=== PATIENT | male | born 1980 | race Caucasian/White ===

== ENCOUNTER 2020-03-28 06:51 | Inpatient (IN) ==
[2020-03-16 12:14] LABS: Appearance,Urine CLEAR (Clear); Bilirubin,Urine Negative (Negative); Color,Urine YELLOW; Culture Indicated,Urine No; Glucose,Urine (UA) Negative (Negative); Ketones,Urine Negative (Negative); Leukocyte Esterase,Urine Negative /ug (Negative); Nitrate,Urine Negative (Negative); Protein,Urine Negative (Negative); Specific Gravity,Urine 1.015 (1.000-1.035); Urine Blood Negative (Negative); Urobilinogen,Urine Negative
[2020-03-16 13:15] LABS: Basophils # (Auto) 0.05 K/mcL (0.00-0.20); Basophils % (Auto) 0.5 % (0.0-2.0); Eosinophils # (Auto) 0.19 K/mcL (0.00-0.70); Hematocrit 50.3 % (41.0-55.0); Hemoglobin 16.8 g/dL (13.5-16.5); Lymphocytes # (Auto) 3.23 K/mcL (1.50-4.80); Lymphocytes % (Auto) 33.2 % (15.0-49.0); Mean Cell Volume 95.1 fL (80.0-100.0); Mean Corpuscular HGB Conc 33.4 g/dL (31.0-36.0); Mean Platelet Volume 10.2 fL (7.4-10.4); Monocytes # (Auto) 0.71 K/mcL (0.10-0.90); Monocytes % (Auto) 7.3 % (1.0-12.0); Platelet Count 294 K/mcL (140-440); RBC 5.29 M/mcL (4.50-5.90); Red Cell Distribution Width 13.2 % (11.5-14.5); WBC 9.7 K/mcL (4.5-11.0)
[2020-03-16 13:33] LABS: Blood Urea Nitrogen 14 mg/dL (6-20); Calcium 9.4 mg/dL (8.6-10.4); Carbon Dioxide 26 mmol/L (22-30); Chloride 102 mmol/L (96-108); Glomerular Filtration Rate 107; Glucose 94 mg/dL (70-105)
[~2020-03-28 06:51] MED LIST: CELECOXIB 200 MG CAPSULE PO SCH; PREGABALIN 75 MG CAPSULE PO SCH; ceFAZolin 3 GM in DEXTROSE 5% IN WATER 50 ML IV SCH; oxyCODONE 10 MG TAB.ER.12H PO SCH
[2020-03-28] MEDS ORDERED: IPRATROPIUM/ALBUTEROL 3 ML AMPUL.NEB NEB PRN ×2 (07:00→10:48)
[2020-03-28] MEDS ORDERED: SCOPOLAMINE 1 PATCH PATCH TOPICAL PRN (07:00)
[2020-03-28] MEDS ORDERED: GENTAMICIN SULFATE 800 MG/20 ML VIAL IR ONE (08:29)
[2020-03-28] MEDS ORDERED: fentaNYL 250 MCG/5 ML VIAL IV ONE (09:50)
[2020-03-28] MEDS ORDERED: MIDAZOLAM 5 MG/5 ML VIAL ONE (09:50)
[2020-03-28] MEDS ORDERED: LIDOCAINE HCL/PF 100 MG/5 ML SYRINGE IV ONE (09:50)
[2020-03-28] MEDS ORDERED: TRANEXAMIC ACID 1,000 MG/10 ML VIAL IV ONE ×2 (09:50→12:11)
[2020-03-28] MEDS ORDERED: PROPOFOL 200 MG/20 ML VIAL IV ONE (09:50)
[2020-03-28] MEDS ORDERED: ROCURONIUM 10 MG/ML ML IV ONE (09:50)
[2020-03-28] MEDS ORDERED: ePHEDrine 50 MG/ML AMPUL IV ONE (09:50)
[2020-03-28] MEDS ORDERED: PHENYLEPHRINE 10 MG/ML VIAL ONE (09:50)
[2020-03-28] MEDS ORDERED: SUCCINYLCHOLINE 20 MG/ML ML IV ONE (09:50)
[2020-03-28] MEDS ORDERED: DEXAMETHASONE 10 MG/ML VIAL ONE (09:50)
[2020-03-28] MEDS ORDERED: ONDANSETRON 4 MG/2 ML VIAL ONE (09:50)
[2020-03-28] MEDS ORDERED: FLUMAZENIL 0.1 MG/ML ML IV PRN (10:48)
[2020-03-28] MEDS ORDERED: NALOXONE HCL 0.4 MG/ML VIAL IV PRN (10:48)
[2020-03-28] MEDS ORDERED: PROMETHAZINE 25 MG/ML VIAL IV PRN (10:48)
[2020-03-28] MEDS ORDERED: morphine 2 MG/ML VIAL IV PRN (10:48)
[2020-03-28] MEDS ORDERED: ONDANSETRON 4 MG/2 ML VIAL IV PRN ×2 (10:48→12:11)
[2020-03-28] MEDS ORDERED: METOPROLOL TARTRATE 5 MG/5 ML VIAL IV PRN (10:48)
[2020-03-28] MEDS ORDERED: ePHEDrine 50 MG/ML AMPUL IV PRN (10:48)
[2020-03-28] MEDS ORDERED: ACETAMINOPHEN 1,000 MG/100 ML BAG IV ONE (10:48)
[2020-03-28] MEDS ORDERED: diphenhydrAMINE 50 MG/ML VIAL IV PRN (10:48)
[2020-03-28] MEDS ORDERED: METHOCARBAMOL 1,000 MG/10 ML VIAL IV PRN (10:48)
[2020-03-28] MEDS ORDERED: MEPERIDINE 25 MG/ML SYRINGE IV PRN (10:48)
[2020-03-28] MEDS ORDERED: ATROPINE SULFATE 0.4 MG/ML VIAL IV PRN (10:48)
[2020-03-28] MEDS ORDERED: LACTATED RINGERS 1,000 ML IV SCH (11:00)
[2020-03-28] MEDS ORDERED: LORazepam 2 MG/ML VIAL IV ONE (11:26)
--- NOTE | 2020-03-28 12:09 | General Surgery Procedure Note ---
Date of procedure: Note initiated : 03/28/20 at 12:08 pm Service Date, if different from initiated Date: [] Pre-op diagnosis: right hip osteoarthritis Post-op diagnosis: same Procedure: right total hip arthroplasty Anesthesia: SHIN Surgeon: Basil Garcia Pbx Manager: Manuel Loco Estimated blood loss: 300 Pathology: none sent Condition: stable Disposition: PACU
[2020-03-28] MEDS ORDERED: ONDANSETRON 4 MG ODT TABLET SL PRN (12:11)
[2020-03-28] MEDS ORDERED: FLEETS ADULT ENEMA PR PRN (12:11)
[2020-03-28] MEDS ORDERED: BISACODYL 10 MG SUPP.RECT PR PRN (12:11)
[2020-03-28] MEDS ORDERED: MAGNESIUM HYDROXIDE 30 ML ORAL.SUSP PO PRN (12:11)
[2020-03-28] MEDS ORDERED: POLYETHYLENE GLYCOL 3350 17 GM PACKET PO PRN (12:11)
[2020-03-28] MEDS ORDERED: KETOROLAC 30 MG/ML VIAL IV PRN (12:11)
[2020-03-28] MEDS ORDERED: METHOCARBAMOL 750 MG TABLET PO PRN (12:11)
--- NOTE | 2020-03-28 12:11 | Discharge Plan ---
Discharge Instructions - DARVIN Patient Instructions Total Hip Protocol: Follow activity instructions as provided by Physical Therapy. Dressing Care: May shower in 2 days Discharge Plan Patient/Caregiver Discharge Instructions Activity: ambulate only with your walker and as per physical therapy Diet: Regular Diet Prescriptions: No Action lisinopril 10 MG tablet 10 mg PO DAILY RF: 0 hydrochlorothiazide 12.5 MG tablet 25 mg PO DAILY RF: 0 dextroamphetamine-amphetamine [Adderall] 20 mg tablet 20 mg PO TID RF: 0 trazodone 100 mg tablet 100 mg PO QHS RF: 0 zolpidem 10 mg tablet 10 mg PO QHS RF: 0 eszopiclone [Lunesta] 3 mg tablet 3 mg PO QHS RF: 0 ondansetron HCl [Zofran] 4 mg tablet 4 mg PO Q6H PRN (Reason: nausea and vomiting) Qty: 10 RF: 0 methocarbamol [Robaxin-750] 750 mg tablet 750 mg PO Q8H Qty: 10 RF: 0 multivitamin Capsule 1 cap PO QDAY RF: 0 Follow Up Plan Follow up with: Basil Garcia MD [Physician] - Patient Disposition: Home, Self-Care Rehab Potential: Good I certify that the patient requires SNF services: No Overall status at discharge: patient is progressing back to baseline Discharge Orders: Discharge Order (Routine); Ordered 03/28/20 Ordered By: Basil Garcia Discharge Comment: chief complaint: right hip osteoarthritis s/p darvin
[2020-03-28] MEDS ORDERED: ONDANSETRON HCL 4 MG PO PRN (12:14)
--- NOTE | 2020-03-28 12:52 | Operative Note ---
DATE OF OPERATION: 03/28/2020 PREOPERATIVE DIAGNOSIS: Degenerative joint disease, right hip. POSTOPERATIVE DIAGNOSIS: Degenerative joint disease, right hip. PROCEDURE: Right total hip arthroplasty. SURGEON: Nemesio Garcia M.D. QUOTATION CHECKER SURGEON: Chan Loco PA-C. The PA's assistance was required for the safe and efficient completion of the entire case. This providers expertise and technical skill were required throughout the case. The PA assisted with preoperative coordination, intraoperative retraction, wound closure, dressing and splint application, as well as postoperative documentation and care coordination. ANESTHESIA: Spinal with LMA assist. ESTIMATED BLOOD LOSS: 250 mL. COMPLICATIONS: None noted. SPECIMENS REMOVED: None. DRAINS: None. IMPLANTS: DePuy Rodney Hole Eliminator PS; DePuy [place] Gription acetabular shell, 56 mm diameter; DePuy femoral stem Actis DuoFix hip prosthesis cementless, size 7, standard collar; DePuy [place] Altrx polyethylene acetabular liner lipped, 36 x 56 mm; DePuy Biolox delta ceramic femoral head +12, 36 mm diameter. INDICATIONS: The patient has had a longstanding history of worsening pain in the hip that has failed conservative treatment. Radiographs have confirmed advanced degenerative joint disease. After a long discussion about treatment options, the patient elected to proceed with a hip arthroplasty. The risks and benefits were discussed with the patient in detail including, but not limited to, the risks of anesthesia, problems with the heart or lungs related to anesthesia, infection, compromise or injury to the nerves and blood vessels, deep venous thrombosis, pulmonary embolism, pneumonia, continued pain after surgery, worsening pain or symptoms after surgery, swelling, loss of motion, instability, leg length discrepancy, and need for repeat surgery. DESCRIPTION OF PROCEDURE: The patient was seen in pre-anesthesia waiting room where all questions were answered and the correct side and site were identified and marked. The patient was then brought to the operating room and administered the anesthetic and given pre-operative antibiotics. A time-out was then called. The patient was placed in the lateral decubitus position with all prominences well-padded using the [place] frame and the extremity was prepped and draped in the usual sterile fashion. Anesthesia gave the patient 1 gm of tranexamic acid via an intravenous route. A standard posterior approach was made. We dissected through the skin and subcutaneous tissue to the deep fascia. The deep fascia was split in line with the incision and a Charnley retractor was placed. We exposed, tagged, and incised the short external rotators and piriformis tendon and retracted them posteriorly to help protect the sciatic nerve which was palpated throughout the case. We then performed a T-capsulotomy and tagged the capsule edges. Prior to dislocating the hip, we set a length and offset gauge from a Steinmann pin in the iliac wing to a nicole on the greater trochanter. The hip was then dislocated and a femoral neck osteotomy was performed to the pre-surgical templated level off the lesser trochanter. The head was removed and sized. We next turned our attention to the acetabulum. Retractors were placed for optimal visualization. A complete labral excision was performed. The capsule was preserved for later closure. We began reaming using anatomic landmarks with the DePuy [place] acetabular system. We medialized the cup and reamed up to provide good fill and coverage of the trial. When the trial was stable and appropriately positioned with approximately 20 degrees of anteversion and 45 degrees of abduction, we impacted the DePuy [place] cup and placed a cancellous screw in the posterior-superior quadrant. Osteophytes were removed from around the shell. We placed the trial liner and turned our attention to the femur. We placed retractors for visualization, internally rotated the femur, and established intramedullary access. We broached using the DePuy Tri-Lock stem to a stable platform medial, lateral, and rotationally with the appropriate version. We then performed a calcar reaming off the broach. Trials were then placed and optimized for leg length and stability. We used the leg length and offset guide to confirm our trials. Best stability, length, and offset characteristics were obtained with these sizes. We removed all trials and impacted the polyethylene acetabular liner in a standard fashion after a thorough irrigation. We then impacted the femoral stem to its broached location and placed the head. Final reduction was performed. Again, good stability, leg length, and offset characteristics were noted. We irrigated with three liters of antibiotic saline. We closed the capsule with #2 FiberWire. We closed the fascia with a combination of looped #0 Maxon and #0 Vicryl. We closed the subcutaneous tissue and skin in layers out to koko in the skin. A sterile pressure dressing and abduction wedge was applied. All needle and sponge counts were correct. The patient was transferred to the recovery room in stable condition. George Job ID: [id number] Doc ID: [id number] Nemesio Garcia MD
[2020-03-28] MEDS: HYDROmorphone 0.5 MG/0.5 ML SYRINGE IV PRN ×4 (12:58→13:45)
[2020-03-28] MEDS: BENZOCAINE/MENTHOL 1 LOZENGE PO PRN ×2 (13:09→18:49)
--- NOTE | 2020-03-28 13:52 | XRay Report ---
CLINICAL INFORMATION: Post-op Total Hip COMPARISON: Preoperative films 11/20/2018 FINDINGS: Right total hip prostheses in near anatomic alignment. No osseous abnormalities. Both SI and left hip joints are normal. Soft tissue swelling the surgical site as expected IMPRESSION: Negative Interpreted and Authenticated by: Basil Yates 03/28/20
[2020-03-28] MEDS: 0.9 % SODIUM CHLORIDE 10 ML SYRINGE IV SCH ×2 (14:17→21:09)
[2020-03-28] MEDS: oxyCODONE/APAP 5/325MG TABLET PO PRN ×3 (14:44→23:39)
[2020-03-28] MEDS: METHOCARBAMOL 750 MG TABLET PO SCH ×2 (14:44→21:08)
[2020-03-28] MEDS: LACTATED RINGERS 1,000 ML IV SCH ×3 (14:45→21:09)
[2020-03-28] MEDS: DEXTROAMPHETAMINE AMPHETAMINE 20 MG PO SCH ×2 (14:45→21:09)
[2020-03-28] MEDS: morphine 4 MG/ML VIAL IV PRN ×2 (15:58→21:07)
[2020-03-28] MEDS: ceFAZolin 1 GM VIAL IV SCH (17:02)
[2020-03-28] MEDS ORDERED: ESZOPICLONE 3 MG PO SCH (21:00)
[2020-03-28] MEDS: ASPIRIN 81 MG TAB.CHEW PO SCH (21:08)
[2020-03-28] MEDS: traZODone HCL 100 MG TABLET PO SCH (21:08)
[2020-03-28] MEDS: ZOLPIDEM 5 MG TABLET PO SCH (21:08)
[2020-03-28] MEDS: SENNOSIDES 1 TABLET PO SCH (21:08)
[2020-03-28] MEDS: DOCUSATE SODIUM 100 MG CAPSULE PO SCH (21:09)
[2020-03-29] MEDS: ceFAZolin 1 GM VIAL IV SCH ×2 (01:56→22:41)
[2020-03-29] MEDS: morphine 4 MG/ML VIAL IV PRN ×5 (02:05→23:11)
[2020-03-29] MEDS: 0.9 % SODIUM CHLORIDE 10 ML SYRINGE IV SCH ×4 (02:06→22:52)
[2020-03-29] MEDS: oxyCODONE/APAP 5/325MG TABLET PO PRN ×3 (03:33→12:21)
[2020-03-29] MEDS: METHOCARBAMOL 750 MG TABLET PO SCH ×2 (03:34→13:43)
[2020-03-29 06:57] LABS: Hematocrit 41.4 % (41.0-55.0); Hemoglobin 13.8 g/dL (13.5-16.5)
[2020-03-29 07:38] LABS: Prothrombin Time 13.7 sec (11.9-14.5)
--- NOTE | 2020-03-29 08:05 | Orthopedic Progress Note ---
SUBJECTIVE Subjective Patient information: Note initiated : 03/29/20 at 8:02 am Service Date, if different from initiated Date: [] Patient: Mustapha Multani 39 y/o M admitted on for Right Total Hip Arthroplasty Posterior. Chief Complaint: [feels short and feels like hip is clunking / dislocating] Constitutional Vitals: Vital Signs Temp Pulse Resp BP Pulse Ox 97.9 F 64 17 112/62 95 03/29/20 03:22 03/29/20 03:22 03/29/20 03:22 03/29/20 03:22 03/29/20 03:22 Period Temp Pulse Resp BP Sys/Garcia Pulse Ox Last 24 Hr 97.7 F-98.2 F 64-110 14-26 96-156/47-81 17-98 Intake and Output 03/28/20 03/29/20 03/29/20 21:59 05:59 13:59 Intake Total 1125 1600 50 Output Total 700 2950 Balance 425 -1350 50 Intake & Output: Intake & Output 03/28/20 03/29/20 03/29/20 21:59 05:59 13:59 Intake Total 1125 1600 50 Output Total 700 2950 Balance 425 -1350 50 Intake: IV 685 50 Lactated Ringers 1,000 ml @ 125 685 mls/hr IV .Q8H [facility] Rx#: [id number] Ancef 3 gm In Dextrose 5% in 50 Water 50 ml @ 100 mls/hr IV PREOP [facility] Rx#:[id number] Oral 440 1600 Output: Urine Catheter Amount 700 Void Amount 2950 Other: Meal Dinner Percent of Meal Consumed 100% Feeding Ability Independent Urine Appearance Clear Urine Color Bright Yellow Bright Yellow Urine Odor Normal Expanded Upper Extremity Exam General: Present amputation Expanded Lower Extremity Exam Hip exam: Present dislocation, full ROM, shortening, swelling and tenderness OBJ DATA Labs CBC & Chem 7: 03/29/20 05:44 03/16/20 09:51 Meds: Medications Aspirin (Aspirin) 81 mg PO BID [facility] Last Admin: 03/28/20 21:08 Dose: 81 mg Documented by: Bisacodyl (Dulcolax) 10 mg HI Q2-3DAYS PRN PRN Reason: Constipation Docusate Sodium (Colace) 100 mg PO BID [facility] Last Admin: 03/28/20 21:09 Dose: 100 mg Documented by: Hydrochlorothiazide (Oretic) 25 mg PO DAILY [facility] Ketorolac Tromethamine (Toradol) 30 mg IV Q6HP PRN; Protocol PRN Reason: Per Pain Protocol Stop: 03/30/20 12:12 Last Admin: 03/28/20 13:02 Dose: 30 mg Documented by: Lisinopril (Zestril) 10 mg PO DAILY [facility] Magnesium Hydroxide (Milk Of Magnesia) 30 ml PO BIDP PRN PRN Reason: Constipation Methocarbamol (Robaxin) 750 mg PO Q6HP PRN PRN Reason: Muscle Spasm Methocarbamol (Robaxin) 750 mg PO Q8H [facility] Last Admin: 03/29/20 03:34 Dose: 750 mg Documented by: Morphine Sulfate (Morphine) 2 - 6 mg IV Q1HP PRN; Protocol PRN Reason: Per Pain Protocol Last Admin: 03/29/20 04:57 Dose: 4 mg Documented by: Ondansetron HCl (Zofran) 4 mg IV Q4HP PRN; Protocol PRN Reason: Nausea And Vomiting Ondansetron HCl (Zofran Odt) 4 mg SL Q4HP PRN; Protocol PRN Reason: Nausea And Vomiting Oxycodone/Acetaminophen (Percocet 5-325 Mg) 1 - 2 tab PO Q4HP PRN; Protocol PRN Reason: Per Pain Protocol Last Admin: 03/29/20 07:38 Dose: 2 tab Documented by: Dextroamphetamine- Amphetamine [ Adderall] 20 Mg Tab 1 dose PO TID [facility] Last Admin: 03/28/20 21:09 Dose: Not Given Documented by: Polyethylene Glycol (Miralax) 17 gm PO DAILYP PRN PRN Reason: Constipation Senna (Senokot) 2 tab PO HS [facility] Last Admin: 03/28/20 21:08 Dose: 2 tab Documented by: Sodium Biphosphate/Sodium Phosphate (Fleets Adult) 1 dose HI Q3-4DAYS PRN PRN Reason: Constipation Sodium Chloride (Saline Flush) 10 ml IV Q8 [facility] Last Admin: 03/29/20 04:57 Dose: 10 ml Documented by: Throat Lozenges (Cepacol) 1 lozenge PO PRN PRN PRN Reason: Sore Throat Last Admin: 03/28/20 18:49 Dose: 1 lozenge Documented by: Trazodone HCl (Desyrel) 100 mg PO QHS [facility] Last Admin: 03/28/20 21:08 Dose: 100 mg Documented by: Zolpidem Tartrate (Ambien) 10 mg PO QHS [facility] Last Admin: 03/28/20 21:08 Dose: 10 mg Documented by: A/P Narrative A/P Narrative: pod 1 s/p darvin patient is feeling instability and clunking in hip. sort on xray plan to take back to surgery today for change in version of cup and lengthening of hip. risks and benefits discussed Time Spent With Patient Time: Total time spent is greater than 50% in coordination of care (as documented) at patient's floor/unit and/or counseling patient:
[2020-03-29] MEDS ORDERED: LISINOPRIL 10 MG TABLET PO SCH (09:00)
[2020-03-29] MEDS: LORazepam 2 MG/ML VIAL IV PRN ×3 (10:06→22:59)
[2020-03-29] MEDS: LACTATED RINGERS 1,000 ML IV SCH ×2 (10:07→22:52)
[2020-03-29] MEDS: DOCUSATE SODIUM 100 MG CAPSULE PO SCH (10:52)
[2020-03-29] MEDS: HYDROCHLOROTHIAZIDE 25 MG TABLET PO SCH (10:52)
[2020-03-29] MEDS: ASPIRIN 81 MG TAB.CHEW PO SCH (10:52)
[2020-03-29] MEDS: DEXTROAMPHETAMINE AMPHETAMINE 20 MG PO SCH ×3 (10:52→22:25)
[2020-03-29] MEDS ORDERED: ONDANSETRON 4 MG/2 ML VIAL ONE (19:04)
[2020-03-29] MEDS ORDERED: PHENYLEPHRINE 10 MG/ML VIAL ONE (19:04)
[2020-03-29] MEDS ORDERED: DEXAMETHASONE 10 MG/ML VIAL ONE (19:04)
[2020-03-29] MEDS ORDERED: TRANEXAMIC ACID 1,000 MG/10 ML VIAL IV ONE ×2 (19:04→21:17)
[2020-03-29] MEDS ORDERED: LIDOCAINE HCL/PF 100 MG/5 ML SYRINGE IV ONE (19:04)
[2020-03-29] MEDS ORDERED: fentaNYL 250 MCG/5 ML VIAL IV ONE (19:04)
[2020-03-29] MEDS ORDERED: MIDAZOLAM 5 MG/5 ML VIAL ONE (19:04)
[2020-03-29] MEDS ORDERED: PROPOFOL 200 MG/20 ML VIAL IV ONE (19:04)
[2020-03-29] MEDS ORDERED: GENTAMICIN SULFATE 800 MG/20 ML VIAL IR ONE (19:41)
[2020-03-29] MEDS ORDERED: FLUMAZENIL 0.1 MG/ML ML IV PRN (21:01)
[2020-03-29] MEDS ORDERED: IPRATROPIUM/ALBUTEROL 3 ML AMPUL.NEB NEB PRN (21:01)
[2020-03-29] MEDS ORDERED: ACETAMINOPHEN 1,000 MG/100 ML BAG IV ONE (21:01)
[2020-03-29] MEDS ORDERED: MEPERIDINE 25 MG/ML SYRINGE IV PRN (21:01)
[2020-03-29] MEDS ORDERED: PROMETHAZINE 25 MG/ML VIAL IV PRN (21:01)
[2020-03-29] MEDS ORDERED: LACTATED RINGERS 250 ML IV PRN (21:01)
[2020-03-29] MEDS ORDERED: diphenhydrAMINE 50 MG/ML VIAL IV PRN (21:01)
[2020-03-29] MEDS ORDERED: NALOXONE HCL 0.4 MG/ML VIAL IV PRN (21:01)
[2020-03-29] MEDS ORDERED: fentaNYL 100 MCG/2 ML VIAL IV PRN (21:01)
[2020-03-29] MEDS ORDERED: ONDANSETRON 4 MG/2 ML VIAL IV PRN ×2 (21:01→21:17)
--- NOTE | 2020-03-29 21:14 | General Surgery Procedure Note ---
Date of procedure: Note initiated : 03/29/20 at 9:12 pm Service Date, if different from initiated Date: [] Pre-op diagnosis: right hip instability s/p darvin Post-op diagnosis: same Procedure: right hip revision femoral component total hip arthroplasty Findings: acetabulum increased anteversion and shortening of right hip Anesthesia: spinal Surgeon: Basil Garcia Wool Mixer: Manuel Loco Estimated blood loss: 200 Pathology: none sent Condition: stable Disposition: PACU
[2020-03-29] MEDS ORDERED: LACTATED RINGERS 1,000 ML IV SCH (21:15)
[2020-03-29] MEDS ORDERED: FLEETS ADULT ENEMA PR PRN (21:17)
[2020-03-29] MEDS ORDERED: KETOROLAC 30 MG/ML VIAL IV PRN (21:17)
[2020-03-29] MEDS ORDERED: MAGNESIUM HYDROXIDE 30 ML ORAL.SUSP PO PRN (21:17)
[2020-03-29] MEDS ORDERED: BISACODYL 10 MG SUPP.RECT PR PRN (21:17)
[2020-03-29] MEDS ORDERED: METHOCARBAMOL 750 MG TABLET PO PRN (21:17)
[2020-03-29] MEDS ORDERED: POLYETHYLENE GLYCOL 3350 17 GM PACKET PO PRN (21:17)
[2020-03-29] MEDS ORDERED: ONDANSETRON 4 MG ODT TABLET SL PRN (21:17)
[2020-03-29] MEDS ORDERED: BENZOCAINE/MENTHOL 1 LOZENGE PO PRN (21:17)
[2020-03-29] MEDS: ZOLPIDEM 5 MG TABLET PO SCH (23:36)
[2020-03-29] MEDS: traZODone HCL 100 MG TABLET PO SCH (23:36)
[2020-03-30] MEDS: LACTATED RINGERS 1,000 ML IV SCH ×2 (00:02→06:10)
[2020-03-30] MEDS: ASPIRIN 81 MG TAB.CHEW PO SCH (00:04)
[2020-03-30] MEDS: DOCUSATE SODIUM 100 MG CAPSULE PO SCH (00:05)
[2020-03-30] MEDS: SENNOSIDES 1 TABLET PO SCH (00:05)
[2020-03-30] MEDS: METHOCARBAMOL 750 MG TABLET PO SCH (00:05)
[2020-03-30] MEDS: oxyCODONE/APAP 5/325MG TABLET PO PRN ×3 (00:08→08:21)
[2020-03-30] MEDS: morphine 4 MG/ML VIAL IV PRN ×2 (01:35→06:29)
--- NOTE | 2020-03-30 02:19 | XRay Report ---
CLINICAL INFORMATION: hip revision COMPARISON: None. FINDINGS: Intraoperative film shows femoral stem template and acetabular prostheses anatomically aligned. Soft tissue swelling as expected. IMPRESSION: Intraoperative films as described Interpreted and Authenticated by: Basil Yates 03/30/20
--- NOTE | 2020-03-30 02:20 | XRay Report ---
CLINICAL INFORMATION: Post-op Total Hip COMPARISON: None. FINDINGS: Right total hip prostheses is anatomically aligned. No osseous abnormalities. Both SI and left hip joints are normal in width and alignment without arthritic change. IMPRESSION: Right hip prostheses in anatomic alignment Interpreted and Authenticated by: Basil Yates 03/30/20
[2020-03-30] MEDS: 0.9 % SODIUM CHLORIDE 10 ML SYRINGE IV SCH (04:22)
[2020-03-30] MEDS: ceFAZolin 1 GM VIAL IV SCH (06:30)
[2020-03-30 06:57] LABS: Hematocrit 38.5 % (41.0-55.0); Hemoglobin 12.5 g/dL (13.5-16.5)
--- NOTE | 2020-03-30 06:58 | Orthopedic Progress Note ---
SUBJECTIVE Subjective Patient information: Note initiated : 03/30/20 at 6:56 am Service Date, if different from initiated Date: [] Patient: Mustapha Multani 39 y/o M admitted on 03/29/20 for Right Total Hip Arthroplasty Posterior. Chief Complaint: [] Constitutional Vitals: Vital Signs Temp Pulse Resp BP Pulse Ox 98.6 F 116 H 18 130/67 97 03/30/20 04:23 03/30/20 04:23 03/30/20 04:23 03/30/20 04:23 03/30/20 04:23 Period Temp Pulse Resp BP Sys/Garcia Pulse Ox Last 24 Hr 98.2 F-99.0 F 76-116 14-26 114-156/62-83 92-100 Intake and Output 03/29/20 03/30/20 03/30/20 21:59 05:59 13:59 Intake Total 1840 1250 Output Total 2200 1200 Balance -360 50 Intake & Output: Intake & Output 03/29/20 03/30/20 03/30/20 21:59 05:59 13:59 Intake Total 1840 1250 Output Total 2200 1200 Balance -360 50 Intake: IV 700 Lactated Ringers 1,000 ml @ 125 600 mls/hr IV .Q8H [facility] Rx#: [id number] Oral 240 550 IV - Manual Only 1600 Output: Urine Catheter Amount 600 1200 Uretheral (Akhtar) 600 Void Amount 1200 Estimated Blood Loss 400 Other: Meal Breakfast Percent of Meal Consumed 100% Feeding Ability Independent Urine Appearance Clear Clear Uretheral (Akhtar) Clear Clear Urine Color Pale Bright Yellow Uretheral (Akhtar) Bright Yellow Pale Urine Odor Normal Uretheral (Akhtar) Normal Extremities Exam Extremities exam: Present full ROM, normal capillary refill, normal inspection, Foot pink and warm and neurovascular intact; Absent calf tenderness and tenderness OBJ DATA Labs CBC & Chem 7: 03/29/20 05:44 03/16/20 09:51 Meds: Medications Aspirin (Ecotrin) 81 mg PO BID [facility] Bisacodyl (Dulcolax) 10 mg [place] Q2-3DAYS PRN PRN Reason: Constipation Docusate Sodium (Colace) 100 mg PO BID [facility] Hydrochlorothiazide (Oretic) 25 mg PO DAILY [facility] Last Admin: 03/29/20 10:52 Dose: Not Given Documented by: Lactated Ringer's (Lactated Ringers) 1,000 mls @ 125 mls/hr IV .Q8H [facility] Last Admin: 03/30/20 06:10 Dose: Not Given Documented by: Ketorolac Tromethamine (Toradol) 30 mg IV Q6HP PRN; Protocol PRN Reason: Per Pain Protocol Stop: 03/31/20 21:19 Last Admin: 03/30/20 00:42 Dose: 30 mg Documented by: Lisinopril (Zestril) 10 mg PO DAILY [facility] Last Admin: 03/29/20 10:52 Dose: Not Given Documented by: Lorazepam (Ativan) 1 mg IV Q6HP PRN PRN Reason: ANXIETY/SEDATION Last Admin: 03/29/20 22:59 Dose: 1 mg Documented by: Magnesium Hydroxide (Milk Of Magnesia) 30 ml PO BIDP PRN PRN Reason: Constipation Methocarbamol (Robaxin) 750 mg PO Q6HP PRN PRN Reason: Muscle Spasm Last Admin: 03/29/20 23:10 Dose: 750 mg Documented by: Morphine Sulfate (Morphine) 2 - 6 mg IV Q1HP PRN; Protocol PRN Reason: Per Pain Protocol Last Admin: 03/30/20 06:29 Dose: 6 mg Documented by: Ondansetron HCl (Zofran) 4 mg IV Q4HP PRN; Protocol PRN Reason: Nausea And Vomiting Ondansetron HCl (Zofran Odt) 4 mg SL Q4HP PRN; Protocol PRN Reason: Nausea And Vomiting Oxycodone/Acetaminophen (Percocet 5-325 Mg) 1 - 2 tab PO Q4HP PRN; Protocol PRN Reason: Per Pain Protocol Last Admin: 03/30/20 04:21 Dose: 2 tab Documented by: Dextroamphetamine- Amphetamine [ Adderall] 20 Mg Tab 1 dose PO TID [facility] Last Admin: 03/29/20 22:25 Dose: Not Given Documented by: Polyethylene Glycol (Miralax) 17 gm PO DAILYP PRN PRN Reason: Constipation Senna (Senokot) 2 tab PO HS [facility] Sodium Biphosphate/Sodium Phosphate (Fleets Adult) 1 dose [place] Q3-4DAYS PRN PRN Reason: Constipation Sodium Chloride (Saline Flush) 10 ml IV Q8 [facility] Last Admin: 03/30/20 04:22 Dose: 10 ml Documented by: Throat Lozenges (Cepacol) 1 lozenge PO PRN PRN PRN Reason: Sore Throat Trazodone HCl (Desyrel) 100 mg PO QHS [facility] Last Admin: 03/29/20 23:36 Dose: 100 mg Documented by: Zolpidem Tartrate (Ambien) 10 mg PO QHS [facility] Last Admin: 03/29/20 23:36 Dose: 10 mg Documented by: A/P Narrative A/P Narrative: pod 1 s/p revision femur darvin wbat pain control dvt prophylaxis d/c planning - home today Time Spent With Patient Time: Total time spent is greater than 50% in coordination of care (as documented) at patient's floor/unit and/or counseling patient:
[2020-03-30 08:08] LABS: Prothrombin Time 13.9 sec (11.9-14.5)
[2020-03-30] MEDS: DEXTROAMPHETAMINE AMPHETAMINE 20 MG PO SCH (08:22)
[2020-03-30] MEDS: HYDROCHLOROTHIAZIDE 25 MG TABLET PO SCH (08:22)
[2020-03-30] MEDS ORDERED: DOCUSATE SODIUM 100 MG CAPSULE PO SCH (09:00)
[2020-03-30] MEDS ORDERED: ASPIRIN 325 MG ENTERIC COATED TABLET PO SCH (09:00)
[2020-03-30] MEDS ORDERED: SENNOSIDES 1 TABLET PO SCH (21:00)
--- NOTE | 2020-04-20 11:35 | Operative Note ---
DATE OF OPERATION: 03/29/2020 PREOPERATIVE DIAGNOSIS: Short right total hip arthroplasty with possible subluxation. POSTOPERATIVE DIAGNOSES: Short right total hip arthroplasty with possible subluxation. PROCEDURE PERFORMED: Revision right total hip arthroplasty, femoral component. SURGEON: Nemesio Garcia M.D. APARTMENT LEASING SPECIALIST SURGEON: Chan Loco PA-C. The PA's assistance was required for the safe and efficient completion of the entire case. This provider's expertise and technical skill were required throughout the case. The PA assisted with preoperative coordination, intraoperative retraction, wound closure, dressing and splint application, as well as postoperative documentation and care coordination. ANESTHESIA: Spinal with LMA assist. ESTIMATED BLOOD LOSS: 100 mL. COMPLICATIONS: None. SPECIMENS: None. DRAINS: None. IMPLANTS: DePuy apex hole eliminator PS; DePuy Actis size 9, standard collar; DePuy [place] Altrx polyethylene acetabular liner, +4 mm; DePuy M-Spec metal femoral head 36+15.5, 36 mm diameter. INDICATIONS: The patient underwent a total hip arthroplasty yesterday. Over the course of the morning, he felt that there was some instability in the hip. Radiographs had confirmed that he was about 4-5 mm short on that side, and I felt that he may be levering off the prosthesis causing a feeling of instability anteriorly. We talked about different options, either watching it and see if it got better versus taking him back to surgery and try to correct the leg length discrepancy. 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 We talked about this in detail, and he wished to proceed with surgical intervention. The risks and benefits were discussed with the patient in detail including, but not limited to, the risks of anesthesia, problems with the heart or lungs related to anesthesia, infection, compromise or injury to the nerves and blood vessels, deep venous thrombosis, pulmonary embolism, pneumonia, continued pain after surgery, worsening pain or symptoms after surgery, swelling, loss of motion, re-tear or failure of repair site, leg length discrepancy, need for repeat surgery, and instability. DESCRIPTION OF PROCEDURE: The patient was seen in the preanesthesia waiting room. All questions were answered and correct side and site were identified and marked. The patient was brought to the operating room and administered anesthetic and given preoperative antibiotics. A timeout was then called. The patient was placed in the lateral decubitus position. All prominences were well padded using the [place] frame. The extremity was prepped and draped in the usual sterile fashion. Anesthesia gave the patient 1 gram of tranexamic acid via intravenous route. A standard posterior approach was made through his old incision. I dissected down through the skin and subcutaneous tissue to the deep fascia. The deep fascia was split in line with the incision. Charnley retractor was placed. I was able to split the piriformis and external rotators to gain access to the hip joint. We took the hip through range of motion. Motion was good in all planes. There was no instability posteriorly. The lipped liner in extreme flexion and external rotation was slightly Cam levering off of the femoral neck, and I felt this may be causing his feeling of subluxation. At this point, I also visualized the acetabulum, which was anteverted about 30 degrees. I removed the femoral head after dislocating, as well as removing the femoral stem. Attention was turned back to the acetabulum. I removed the liner, followed by the apex hole eliminator. I took the cup and I changed the version, so we were at about 45 degrees of abduction and back to 20 degrees of anteversion. From x-rays and from looking and inspecting at this point, we were at about 30 degrees of anteversion. I was able to re-impact it at 20 degrees of anteversion and 45 degrees of abduction. I placed one cancellous bone screw 6.5 x 30 for stabilization and then placed a trial liner which was +4 neutral. Attention was turned towards the femur. I broached up to a size 9 and then placed a trial size 9 standard collar. I trialed the head, a 36+15.5. We brought in x-ray, shot a flat plate to confirm that our leg lengths were symmetric. He had full range of motion. There was no Cam or impingement noted and a very stable hip. I took out the trials and placed the final Stevenson acetabular liner, +4 neutral, after the apex hole eliminator and then placed the final Actis size 9 standard collar with an M-Spec femoral head 36+15.5. I reduced the hip again, took it through range of motion and confirmed that the hip was very stable. There was no impingement, subluxation or ''Cam-ing'', and all components were in good position. We thoroughly irrigated and closed the capsule with #2 FiberWire, as well as tagging external rotators and piriformis with FiberWire. We closed the fascia with a combination of #2 Stratafix and 0 Vicryl. The subcutaneous tissue and skin were closed in layers to koko on the skin. A sterile pressure dressing and abduction wedge was applied. He was transferred to the recovery room in stable condition. BRANDIN:vanesa Job ID: [id number] Doc ID: [id number] Nemesio Garcia MD
== END 2020-03-30 08:45 | disposition home or self-care (01) | DRG 467 ==
LOC: SUR 06:51 → MEDSUR 06:52
PROVIDERS: ADMIT Orthopaedic Surgery Sports Medicine; ATTEND Orthopaedic Surgery Sports Medicine